=== PATIENT | female | born 1990 | race Caucasian/White ===

== ENCOUNTER 2023-06-28 23:35 | Inpatient (IN) ==
[2023-06-29] MEDS ORDERED: LIDOCAINE 1% LOCAL 20 ML VIAL INFIL PRN (00:25)
--- NOTE | 2023-06-29 00:32 | History & Physical Report ---
Date of Service June 29, 2023 Assessment & Plan (1) SROM (spontaneous rupture of membranes): (2) Hypothyroid in , antepartum: Plan 33 yo G1 at 38 5/7 wga presents w/ srom VSS Fetus cat 1 Labor - will expectant manage and recheck in a few hours. Discussed potential need for pitocin if not making change at that point, pt verbalized understanding GBS neg plans to decline epidural History of Present Illness Chief Complaint: ROM Primary Care Provider: Marie Leigh PA-C 33 yo G1 at 38 5/7 wga w/ ASHLEE 07/08 presents w/ LOF since 1045pm. [place] a pop and gush, then continued LOF since. +FM; denies ctx, VB PNI: Rubella nonimm Hypothyroid Past [employer] Hx G1 denies hx stis 07/2022 neg cotest Allergies Allergy/AdvReac Type Severity Reaction Status Date / Time No Known Allergies Allergy Verified 06/29/23 00:00 Home Medications Medication Instructions Recorded Confirmed Type vits no.124-ferrous fum 1 tab PO DAILY 11/17/22 06/29/23 History 27 mg iron-folic acid 800 mcg tablet ( Vitamin) levothyroxine 25 mcg tablet 25 mcg PO DAILY #90 tabs 01/06/23 06/29/23 Rx (Synthroid) ferrous sulfate 325 mg (65 mg 325 mg PO DAILY 06/29/23 06/29/23 History iron) tablet (Iron (ferrous sulfate)) Patient History Medical History (Updated 06/29/23 @ 00:30 by Marbella Interiano MD) Colon polyp Varicella vaccination No pertinent past medical history Surgical History H/O colonoscopy [place] teeth extracted Family History Other Adopted Social History Smoking Status: Never smoker Second Hand Exposure: No; Do You Dip or Chew Tobacco: No; Hx Alcohol Use: No Hx Substance Use: No Preferred Language: Trinidadian Communication Ability: Effective Examination Supervisor Required: No Beliefs That Will Affect Care: None marital status: marital status details: Liang Kent (30) [phone] Current Living Situation: Spouse Current Living Situation Comment: lives with spouse, cat-spouse changing litter current occupational status: employed 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 Other Information That Helps Us Care for You: No Feels Safe at Home: Yes Safety Concerns: Feels Safe At This Time Assistive Devices: Glasses Physical Exam Genitourinary: OB Exam Abdomen: + vertex Manual OB Exam: + cervical dilation 3 cm, + cervical effacement 70%, + station -2 and + amniotic fluid (SSE+ nitrazine, pooling, ferning) OB Exam Monitor Tracing: + external FHT monitor used, + external uterine monitor used (irreg) and + category I (145/mod/+accel/-decel) Results & Data Vital Signs (Past 12 Hours) Vital Signs Temp Pulse Resp BP 06/29/23 00:02 98.1 F 16 06/28/23 23:53 71 109/63 Laboratory Results OB Labs: Blood Type O Positive 11/25/22 Antibody Screen NEGATIVE 11/25/22 Hemoglobin 10.6 g/dl (12.0-16.0) L 04/14/23 Hematocrit 33.1 % (37.0-47.0) L 04/14/23 Mean Corpuscular Volume 87.6 fL (80.0-100.0) 11/25/22 Platelet Count 280 K/uL (130-400) 11/25/22 Rubella IgG Antibody Equivocal (Immune) L 11/25/22 Rapid Plasma Reagin Nonreactive (Nonreactive) 11/25/22 Hepatitis B Surface Antigen. NON-REACTIVE (NON-REACTIVE) 11/25/22 Hepatitis C Antibody (EIA) NON-REACTIVE (NON-REACTIVE) 11/25/22 HIV (1&2) Ag and Ab Confirmation NON-REACTIVE (NON-REACTIVE) 11/25/22 Glucose 1 Hour 50 gm Load 146 mg/dl (70-130) H 01/22/23 Maternal Serum Alpha Fetoprotein 30.0 ng/mL 01/22/23 OB Optional Labs: Chlamydia trachomatis RNA Not Detected (NotDetected) 11/25/22 Neisseria gonorrhoeae RNA Not Detected (NotDetected) 11/25/22 Thyroid Stimulating Hormone (TSH) 0.626 uIu/ml (0.300-4.500) 05/14/23 Alpha Fetoprotein Triple Screen SEE NOTE 01/22/23 GBS neg Coding Level of Care Code None Diagnoses SROM (spontaneous rupture of membranes) Hypothyroid in , antepartum O99.280; E03.9
[2023-06-29 00:45] LABS: Hematocrit (blood only) 36.4 % (37.0-47.0); Mean Corpuscular Hemoglobin 28.6 pg (25.0-34.0); Mean Corpuscular Volume 86.7 fL (80.0-100.0); Mean Platelet Volume 9.7 fL (9.4-12.4); Platelet Count 211 K/uL (130-400); RDW Coefficient of Variation 17.9 % (11.5-14.5); RDW Standard Deviation 56.1 fL (36.4-46.3); White Blood Count 10.61 K/ul (4.8-10.8)
[2023-06-29] MEDS: LACTATED RINGER'S 1,000 ML IV PRN (03:57)
[2023-06-29] MEDS: OXYTOCIN 30 UNITS/NSS 30 UNITS/500 ML BAG IV PRN ×2 (04:08→15:45)
--- NOTE | 2023-06-29 07:29 | Labor Progress Brief Note ---
Date of Service June 29, 2023 Subjective feeling ctx more Assessment & Plan (1) SROM (spontaneous rupture of membranes): (2) Hypothyroid in , antepartum: Plan 33 yo G1 at 38 5/7 wga presents w/ srom VSS Fetus cat 1 Labor - pit at 6, change noted. ?forebag palpated, offered to attempt rom of this and pt would like to wait for now GBS neg plans to decline epidural Admission and Anticipated Discharge Date Admission Date: June 29, 2023 Physical Exam Genitourinary: Manual OB Exam: + cervical dilation 4 cm, + cervical effacement 70% and + station -2 OB Exam Monitor Tracing: + external FHT monitor used, + external uterine monitor used (q4-5) and + category I (145/mod/+accel/-decel) Results & Data Vital Signs (Past 12 Hours) Vital Signs Temp Pulse Resp BP 06/29/23 07:10 57 L 102/61 06/29/23 07:05 20 06/29/23 07:05 98.1 F 20 06/29/23 06:01 98.1 F 69 18 98/62 L 06/29/23 05:00 59 L 16 98/57 L 06/29/23 03:54 98.2 F 57 L 16 105/66 06/29/23 02:00 16 06/29/23 02:00 98.2 F 16 06/29/23 00:02 98.1 F 16 06/28/23 23:53 71 109/63 Coding Level of Care Code None Diagnoses SROM (spontaneous rupture of membranes) Hypothyroid in , antepartum O99.280; E03.9
[2023-06-29] MEDS: LEVOTHYROXINE SODIUM 25 MCG TABLET PO STA (10:08)
--- NOTE | 2023-06-29 13:06 | Labor Progress Brief Note ---
Date of Service June 29, 2023 Subjective Uncomfortable with contractions. FHT Cat 1 [place] Q 2-3 min SVE 8/100/0 She would like to get an epidural. Assessment & Plan Admission and Anticipated Discharge Date Admission Date: June 29, 2023 Results & Data Vital Signs (Past 12 Hours) Vital Signs Temp Pulse Resp BP 06/29/23 12:06 63 20 103/65 06/29/23 11:03 56 L 105/71 06/29/23 11:00 20 06/29/23 11:00 36.7 C 20 06/29/23 10:03 62 06/29/23 10:03 90/51 L 06/29/23 10:03 58 L 88/51 L 06/29/23 09:01 52 L 106/64 06/29/23 09:00 20 06/29/23 09:00 36.4 C L 20 06/29/23 08:06 54 L 100/62 06/29/23 07:10 57 L 102/61 06/29/23 07:05 20 06/29/23 07:05 36.7 C 20 06/29/23 06:01 36.7 C 69 18 98/62 L 06/29/23 05:00 59 L 16 98/57 L 06/29/23 03:54 36.8 C 57 L 16 105/66 06/29/23 02:00 16 06/29/23 02:00 36.8 C 16 Coding Level of Care Code None
[2023-06-29] MEDS ORDERED: SODIUM CHLORIDE 0.9% PF INJ 10 ML VIAL EPI PRN (13:09)
[2023-06-29] MEDS ORDERED: ROPIVACAINE 0.5% PF 5 MG/ML 20 ML VIAL EPI PRN (13:09)
[2023-06-29] MEDS ORDERED: diphenhydrAMINE 50 MG/ML VIAL IV PRN (13:09)
[2023-06-29] MEDS ORDERED: BUPIVACAINE 0.25% PF 30 ML VIAL EPI PRN (13:09)
[2023-06-29] MEDS ORDERED: NALOXONE HCL 1 MG in SODIUM CHLORIDE 0.9% 1,000 ML IV PRN (13:09)
[2023-06-29] MEDS ORDERED: ePHEDrine sulfate 50 MG/ML AMP IV PRN (13:09)
[2023-06-29] MEDS ORDERED: fentaNYL citrate PF 100 MCG/2 ML VIAL EPI PRN (13:09)
[2023-06-29] MEDS ORDERED: NALBUPHINE HCL 5 MG in SYRINGE 0 ML IV PRN (13:09)
[2023-06-29] MEDS ORDERED: NALOXONE HCL 0.4 MG/1 ML VIAL/CARP IV PRN (13:09)
[2023-06-29] MEDS ORDERED: LIDOCAINE 2% MPF LOCAL 5 ML VIAL EPI PRN (13:09)
[2023-06-29] MEDS ORDERED: fentANYL 2 MCG/ML BUPIVacaine 0.125%-NSS 100ML BAG EPI PRN (13:09)
--- NOTE | 2023-06-29 13:14 | Anesthesiology Consultation ---
Date of Service June 29, 2023 Assessment & Plan Chart Review Chart Review: Patient NOT seen in Pre Admission Testing and Acceptable Risk for Labor Epidural Consults Requested none ASA ASA2 Proposed Anesthesia Anesthesia Type: Labor Epidural Risk / Benefits Reviewed With: PT / POA / Parent / Guardian, Accepts Plan and Informed Consent Obtained History Height/Weight Height: 5 ft 3 in Weight: 78.018 kg Allergies Allergy/AdvReac Type Severity Reaction Status Date / Time No Known Allergies Allergy Verified 06/29/23 00:00 Medications Home Medications Medication Instructions Recorded Confirmed Last Taken vits no.124-ferrous fum 1 tab PO DAILY 11/17/22 06/29/23 06/29/23 27 mg iron-folic acid 800 mcg tablet ( Vitamin) levothyroxine 25 mcg tablet 25 mcg PO DAILY #90 tabs 01/06/23 06/29/23 06/29/23 (Synthroid) ferrous sulfate 325 mg (65 mg 325 mg PO DAILY 06/29/23 06/29/23 06/28/23 iron) tablet (Iron (ferrous sulfate)) Active Medications Generic Name Dose Route Start Last Admin Trade Name Freq PRN Reason Stop Dose Admin Lactated Ringer's 1,000 mls @ 125 mls/hr 06/29/23 00:25 06/29/23 11:32 Lr IV 07/01/23 00:24 125 mls/hr .Q8H PRN Administration L&D Protocol Protocol Oxytocin 30 units in 500 mls @ 12 mls/hr 06/29/23 00:34 06/29/23 11:00 Pitocin 30 Units/Nss IV 07/01/23 00:33 0.72 units/hr .Q24H PRN 12 mls/hr Labor Induction/Augmentation Titration Protocol 0.72 UNITS/HR NPO Date Last Intake of Fluids: 06/29/23 Time Last Intake of Fluids: 13:00 Date Last Intake of Solids: 06/29/23 Time Last Intake of Solids: 09:00 Past Medical History Medical History Colon polyp Varicella vaccination No pertinent past medical history Exercise / Class Metabolic Activity 1 > 8 Run/Swim/Ski/Tennis Past Family History Family History Other Adopted Past Surgical History Surgical History H/O colonoscopy [place] teeth extracted Past Anesthesia History No Hx of Anesthesia Complications and No Family Hx of Anesthesia Complications History of PONV No Hx of PONV and No Hx of Motion Sickness Social History Smoking Status: Never smoker Do You Dip or Chew Tobacco: No Hx Alcohol Use: No Hx Substance Use: No substance use type: does not use Review of Systems ROS Unobtainable: All systems reviewed & are unremarkable except as noted in HPI & below Physical Exam Vital Signs Last Vital Signs Temp 36.7 C 06/29/23 11:00 Pulse 60 06/29/23 13:07 Resp 20 06/29/23 12:06 BP 103/65 06/29/23 12:06 Pulse Ox 100 06/29/23 13:07 ENMT Mouth: no TMJ abnormality Thyromental Distance: > or= 3.5 Finger Breadths Mallampati Class: II Neck normal visual inspection and trachea midline; neck extension not limited Respiratory normal respiratory effort Auscultation: lungs clear to auscultation bilaterally Cardiovascular Rate/Rhythm: regular rate and regular rhythm Heart Sounds: no murmur Musculoskeletal Spine: normal cervical ROM Extremities: full ROM of extremities Neurologic moves all extremities Psychiatric Orientation: alert and oriented x 3 Testing Laboratory Results 06/29/23 00:29
[2023-06-29] MEDS: LIDOCAINE 2%/EPINEPHRINE 1:200,000 20 ML PF ONE (13:35)
[2023-06-29] MEDS: fentANYL 2 MCG/ML BUPIVacaine 0.125%-NSS 100ML BAG ONE (13:36)
[2023-06-29] MEDS: BUPIVACAINE 0.25% PF 30 ML VIAL ONE (13:36)
[2023-06-29] MEDS: fentaNYL citrate PF 100 MCG/2 ML VIAL ONE (13:38)
[2023-06-29] MEDS: SODIUM CHLORIDE 0.9% PF INJ 10 ML VIAL ONE (13:38)
[2023-06-29] MEDS: ePHEDrine sulfate 50 MG/ML AMP ONE (14:12)
[2023-06-29] MEDS: fentaNYL citrate PF 100 MCG/2 ML VIAL EPI STA (14:34)
[2023-06-29] MEDS: LIDOCAINE 2%/EPINEPHRINE 1:200,000 20 ML PF EPI STA (14:34)
[2023-06-29] MEDS: BUPIVACAINE 0.25% PF 30 ML VIAL EPI STA (14:34)
[2023-06-29] MEDS: SODIUM CHLORIDE 0.9% PF INJ 10 ML VIAL EPI STA (14:35)
--- NOTE | 2023-06-29 15:49 | Delivery Summary ---
Vaginal Delivery Summary Date of Service June 29, 2023 Vaginal Delivery Summary and 3rd Degree LAC Vaginal Delivery Summary: Pre-delivery diagnoses: 33yo @ 38 5/7, spontaneous labor, hypothyroidism Post-delivery diagnoses: same Procedure: spontaneous vaginal delivery, repair of partial 3rd degree perineal laceration Surgeon: Elma Pink DO Complications: none Findings: Viable female . Apgars: 9/9. Weight pending, please see nursery records. Estimated blood loss: 300ml Description of delivery: The patient progressed to complete with epidural anesthesia. She then began to push. She spontaneously vaginally delivered a viable from the cephalic presentation. The head delivered in KAYLEN position. The anterior shoulder delivered, followed by the posterior shoulder, followed by the body. No nuchal cord. The baby was placed on mother's abdomen and a spontaneous cry was heard. Delayed cord clamping was employed, and the cord was doubly clamped and cut. Cord blood was obtained. The placenta was delivered spontaneously intact with a 3-vessel cord. The uterus and vagina were swept of clots and debris. IV pitocin was given. The uterus became firm. The cervix, vagina, and perineum were inspected. A partial 3rd degree perineal laceration was noted. The tear extended through the anterior fascial sheath, but the muscle remained intact. The fascia of the anal sphincter was reapproximated using figure of eight stitches of 3-0 Chromic. The remaining laceration was reapproximated with 3-0 Vicryl in standard fashion. Excellent hemostasis was observed. The mother and baby are recovering in stable and good condition in the room. Sponge, needle and instrument counts were correct x 2. Elma Pink DO [facility] Vaginal Delivery Charge Vaginal Delivery Codes: 71338 global code for the antepartum, delivery, and post- Delivery Type Details: and 3rd Degree LAC
[2023-06-29] MEDS ORDERED: bisacodyL 10 MG SUPP PR PRN (15:55)
[2023-06-29] MEDS ORDERED: HYDROCORTISONE ACETATE 25 MG SUPP PR PRN (15:55)
[2023-06-29] MEDS ORDERED: OXYTOCIN 30 UNITS/NSS 30 UNITS/500 ML BAG IV PRN (15:55)
[2023-06-29] MEDS ORDERED: ACETAMINOPHEN 325 MG TAB PO PRN (15:55)
[2023-06-29] MEDS ORDERED: oxyCODONE/ACETAMINOPHEN 5mg/325mg TAB PO PRN (15:55)
--- NOTE | 2023-06-29 16:32 | Anesthesia Procedure Note ---
Date of Service June 29, 2023 Anesthesia Post Epidural Note Vital Signs Vital Signs: Temp Pulse Resp BP Pulse Ox 36.7 C 82 20 92/57 L 98 06/29/23 11:00 06/29/23 16:20 06/29/23 12:06 06/29/23 16:20 06/29/23 15:07 Notes Mental Status: alert / awake / arousable and participated in evaluation Nausea / Vomiting: adequately controlled Pain: adequately controlled Airway Patency, RR, SpO2: stable & adequate BP & HR: stable & adequate Hydration State: stable & adequate Neuraxial Anesthesia: was administered and sensory block is resolving Anesthetic Complications: no major complications apparent Epidural: Removed without complications and With tip intact
[2023-06-29] MEDS: DOCUSATE SODIUM 100 MG CAP PO SCH (20:27)
[2023-06-29] MEDS: IBUPROFEN 600 MG TAB PO PRN (20:30)
--- NOTE | 2023-06-30 06:36 | Obstetrical Progress Note ---
Date of Service June 30, 2023 Assessment & Plan (1) Rubella non-immune status, antepartum: (2) Hypothyroid in , antepartum: Plan: Continue on levothyroxine 25 mcg. (3) Encounter for care and examination after delivery: Plan: 33 yo female 1 day post at 38 5/7. Vital signs reviewed Hgb pending Rubella non-immune. MMR vaccine ordered. Pain well controlled with ibuprofen Continue ambulation Encourage Admission and Anticipated Discharge Date Admission Date: June 29, 2023 Supervising Physician Co-Signing Physician Notes Resident Physician Supervision Note: I interviewed and examined the patient. Discussed with medical student and agree with findings and plan as documented in the note. Any exceptions or clarifications are listed here: Please see progress note. Documented By: Elma Pink, Subjective 33 yo day 1 s/p at 38 5/7 weeks without complication. The patient is ambulating. She has passed gas, but has not voided. She is on a regular diet. She admits to minimal lochia and rates her pain at a 2 or 3 out of 10 severity. Breast feeding. Review of Systems Review of Systems: Resting comfortably this AM in NAD. She denies fevers, chills, SOB, cough, chest pain, heart palpitations, breast pain, discharge, UTI symptoms, or headaches. Physical Exam Physical Exam: General: patient resting comfortably, NAD, non-toxic in appearance, AA&O x 4, answers questions appropriately. Skin: warm, dry, intact Heart: regular RR no m/r/g Lungs: CTAB no rales/rhonchi/wheezes Abd: soft non-distended with normal active bowel sounds Ext: warm, no clubbing/cyanosis or edema Neuro: nonfocal, patient AA&O x 4, speech intact, no facial droop, moving all extremities on command. Results & Data Vital Signs (Past 12 Hours) Vital Signs Temp Pulse Resp BP Pulse Ox O2 Del Method 06/30/23 04:00 36.7 C 61 18 99/64 L Room Air 06/30/23 00:16 36.8 C 71 14 97/60 L Room Air 06/29/23 20:26 36.5 C 82 16 104/67 96 Room Air
[2023-06-30 06:55] LABS: Hematocrit (blood only) 29.8 % (37.0-47.0); Mean Corpuscular Hemoglobin 29.5 pg (25.0-34.0); Mean Corpuscular Hgb Conc 33.6 g/dL (32.0-36.0); Mean Corpuscular Volume 87.9 fL (80.0-100.0); Mean Platelet Volume 10.4 fL (9.4-12.4); Platelet Count 192 K/uL (130-400); RDW Coefficient of Variation 18.2 % (11.5-14.5); RDW Standard Deviation 57.8 fL (36.4-46.3); Red Blood Count 3.39 M/uL (4.20-5.40); White Blood Count 12.91 K/ul (4.8-10.8)
[2023-06-30] MEDS ORDERED: Nursing to Pharmacy Communication SCH (07:30)
[2023-06-30] MEDS: LEVOTHYROXINE SODIUM 25 MCG TABLET PO SCH (08:06)
[2023-06-30] MEDS: BENZOCAINE 20% SPRY 85 APPLN/85 GM CAN EXT PRN (08:07)
--- NOTE | 2023-06-30 08:11 | Obstetrical Progress Note ---
Date of Service June 30, 2023 Assessment & Plan (1) Encounter for care and examination after delivery: Plan 33 yo female 1 day post at 38 5/7. Vital signs reviewed Continue Levothyroxine Hgb reviewed Rubella non-immune. MMR vaccine ordered. Pain well controlled with ibuprofen Continue ambulation Encourage Admission and Anticipated Discharge Date Admission Date: June 29, 2023 Supervising Physician Co-Signing Physician Notes Resident Physician Supervision Note: I was present with Dr. Roberto Oneill during the history and exam. I discussed the case with the resident and agree with the findings and plan as documented in the note. Any exceptions or clarifications are listed here: PPD#1 doing well. Routine care. Anticipate DC home tomorrow. Documented By: Elma Pink, DO Subjective 33 yo day 1 s/p Ambulation: ambulating normally Voiding: no voiding problems Passing Gas:: Yes Diet Tolerance:: regular diet Lochia:: Small Feeding Type:: bottle feeding Current Pain Level: Controlled with pain meds Resting comfortably this AM in NAD. Denies BAEZA, CP, SOB, N/V/D, LE pain/swelling. Review of Systems Review of Systems: All systems reviewed & are unremarkable except as noted in HPI & below Physical Exam Physical Exam: General: patient resting comfortably, NAD, non-toxic in appearance, AA&O x 4, answers questions appropriately. Skin: warm, dry, intact Heart: +S1/S2, regular, no m/r/g Lungs: equal air entry bilaterally, no rales/rhonchi/wheezes Abd: +BS, soft, NT/ND, uterine fundus firm at umbilicus Ext: warm, no clubbing/cyanosis or edema, Marcel's neg. Results & Data Vital Signs (Past 12 Hours) Vital Signs Temp Pulse Resp BP Pulse Ox O2 Del Method 06/30/23 04:00 36.7 C 61 18 99/64 L Room Air 06/30/23 00:16 36.8 C 71 14 97/60 L Room Air 06/29/23 20:26 36.5 C 82 16 104/67 96 Room Air Resident Activity Tracking Resident Involvement: Resident Care Provided Care Provided: OB Delivery
[2023-06-30] MEDS ORDERED: LEVOTHYROXINE SODIUM 25 MCG TABLET PO SCH (09:00)
[2023-06-30] MEDS: PRENATAL VITAMIN 1 TAB PO SCH (09:37)
[2023-06-30] MEDS: MEASLES, MUMPS & RUBELLA VIRUS VACCINE (MMR) VIAL SQ ONE (11:41)
[2023-06-30] MEDS: DIPHTHER/TETAN/PERTUS Vaccine (Tdap, Adol/Adult) 0.5mL IM ONE (11:58)
[2023-06-30] MEDS: bisacodyL 5 MG TABEC PO SCH (20:57)
--- NOTE | 2023-07-01 06:43 | Obstetrical Progress Note ---
Date of Service July 01, 2023 Assessment & Plan (1) Rubella non-immune status, antepartum: (2) Hypothyroid in , antepartum: Plan: Continue on levothyroxine 25 mcg. (3) Encounter for care and examination after delivery: Plan: 33 yo female 2 day post at 38 5/7 Vital signs reviewed Hgb 10 Rubella non-immune. MMR vaccine ordered Pain well controlled with ibuprofen Continue ambulation Encourage Discharge home, instructions discussed Admission and Anticipated Discharge Date Admission Date: June 29, 2023 Supervising Physician Co-Signing Physician Notes Patient seen with resident and agree with the above findings and plan. Day 2 status post vaginal delivery. Stable for discharge. Subjective 33 yo day 2 s/p Ambulation: ambulating normally Voiding: no voiding problems Passing Gas: yes Diet Tolerance: regular diet Lochia: moderate Feeding Type: breast feeding Current Pain Level: controlled with ibuprofen Review of Systems Review of Systems: Resting comfortably this AM in NAD. She denies fevers, chills, SOB, cough, chest pain, heart palpitations, breast pain, discharge, UTI symptoms, or headaches. Physical Exam Physical Exam: General: patient resting comfortably, NAD, non-toxic in appearance, AA&O x 4, answers questions appropriately. Skin: warm, dry, intact Heart: regular RR no m/r/g Lungs: CTAB no rales/rhonchi/wheezes Abd: soft non-distended with normal active bowel sounds Ext: warm, no clubbing/cyanosis or edema Neuro: nonfocal, patient AA&O x 4, speech intact, no facial droop, moving all extremities on command. Results & Data Vital Signs (Past 12 Hours) Vital Signs Temp Pulse Resp BP Pulse Ox O2 Del Method 07/01/23 03:35 36.4 C L 61 16 98/61 L 99 Room Air 06/30/23 19:50 36.7 C 64 18 100/58 L 98 Room Air Resident Activity Tracking Resident Involvement: Resident Care Provided Care Provided: OB Delivery
== END 2023-07-01 14:05 | disposition home or self-care (01) | DRG 768 ==
LOC: OPB 23:35 → 4S1 23:36 → 4E2 06-29 18:39